=== PATIENT | female | born 1940 | race Caucasian/White ===

== ENCOUNTER → 2019-01-23 | Outpatient (CLI) | payer MEDICARE, BC ==
--- NOTE | 2019-01-23 16:40 | CONS ---
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 Patient has multiple medical comorbidities. She has been receiving bilateral knee steroid injections for many years now and is happy with the relief. The relief lasts about 3 months. She would like to continue steroid injections. At this time she is not interested in pursuing surgical treatment and given her multiple medical comorbidities I agree with this assessment. Plan: Bilateral knee steroid injection Weight loss Ice Low impact activities Assessment/Plan (Daily) Right and left knee steroid injection procedure: Risks and benefits of steroid injection reviewed with patient. The risks include infection, failure, pain, swelling, nerve/tendon/ligament damage. The patient verbalized understanding and verbal consent was obtained prior to procedure. The right and left knee was prepped in a sterile fashion with alcohol and betadine the site of injection was confirmed. Anterior medial approach was used. The skin and capsule was anesthetized with 3mL 1% lidocaine. The right and left knee were each injected with 2mL 1% lidocaine, 2mL 0.25% bupivacaine, 40mg Depo-Medrol. Injection flowed freely. Good hemostasis was achieved and no complications noted. The patient tolerated the procedure well. Limit activity and ice for 24-48 hours Consultation Date/Type/Reason Admit Date/Time Date of Consultation: Jan 23, 2019 Reason for Consultation Bilateral knee pain Date/Time of Note DATE: 01/23/19 TIME: 16:29 Hx of Present Illness Is a 79-year-old female with a chief complaint of right and left knee pain. The pain is worse in the right knee. The pain began many years ago. She has had numerous corticosteroid injections in bilateral knees over the past years. This was done by Dr. Gabe Dowd at [facility]. The injections last for approximately 3 months. She has no interest in surgery. The patient's pain is in the lateral aspect of the right and left knee. Pain is not radiating to the lower leg. The pain is rated as a 78/10. Patient denies complaints of numbness or tingling. The pain is exacerbated by climbing stairs and ambulation. 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 ----- Duration: Years Injury: No Walking tolerance: 0.5 Block Limp: Yes Support: Cane Swelling: Yes Crepitation: Yes Instability: No Stairs: Uses banister. Places both feet on a step before proceeding to next. Physical Therapy: No Injections: Many bilateral knee steroid injections NSAID's: No, contraindicated secondary to cardiac arrhythmia Prior surgery: No Back pain: No Hip pain: No Risk of AVN : No Patient denies fever, chills, shortness of breath, chest pain, nausea/vomiting, constipation, diarrhea, numbness, and tingling. Past Medical History Cardiac arrhythmia Hypertension Bilateral lower extremity edema Thyroid abnormality DVTs Gout Osteoarthritis Asthma Eczema Osteoporosis Macular degeneration Past Surgical History Hysterectomy Tonsillectomy Family History Significant Family History: no pertinent family hx Social History Alcohol Use: none Smoking Status: Never smoker Drug Use: none Exam/Review of Systems Exam Vitals Weight: 200 pounds Height: 5 foot 1.5 inches BMI: 37.2 Temperature: 90.6 Heart Rate: 130 Blood Pressure: 132/64 Respiratory Rate: 16 Exam General: Awake, alert, in no acute distress, pleasant and cooperative Heart: regular rhythm Lungs: breathing comfortably, no tachypnea or dyspnea MUSCULOSKELETAL: Right and Left Knee This is a well developed obese female who is alert, oriented times three and in no apparent distress. Skin is intact over the right and left knee as well as the lower extremity with no abrasions, lacerations, or ulcerations. Observation of the patient's gait reveals an antalgic gait with valgus thrust. Frontal plane alignment is valgus on the right and left knees. There is pain on palpation of lateral greater than medial joint line. The patient demonstrates grinding anteriorly with ROM. Range of motion: 5 extension to approximately 110 degrees of flexion. Collateral ligament testing reveals no instability with varus or valgus stress at 0 and 30 degrees of flexion. Negative Jaja's and negative posterior drawer. Neurovascularly intact with 5/5 EHL/tibialis anterior/gastroc. Sensation intact to light touch in a sural, saphenous, deep peroneal, superficial peroneal, medial and lateral plantar nerve distribution. Palpable, symmetric dorsalis pedis and posterior tibial pulses in both lower extremities. Hip examination normal Imaging Imaging The patient received a standard set of films today that were personally reviewed. Imaging included a standing bilateral knee AP, PA flexion, merchant views and a dedicated lateral of the right and left knee: There is valgus alignment of the knee. There is complete loss of joint space lateral compartments and patellofemoral compartments. There is osteophyte formation. There is subchondral sclerosis. There are subchondral cysts. Degenerative changes are most severe in the lateral and patellofemoral compartme nt(s). Severe diffuse osteopenia. LUCILA DOWD MD Jan 23, 2019 16:39
--- NOTE | 2019-01-24 12:32 | RADRPT ---
PROCEDURE: XR Knees. CLINICAL INDICATION: Bilateral knee pain. TECHNIQUE: Total of eight views. Weightbearing frontal, oblique, and lateral views of the both kne es. Patellar views of both knees. COMPARISON: No prior study is available for comparison. FINDINGS: There is no fracture or dislocation. The soft tissues are normal. There are degenerative changes with osteophytes arising from all 3 joint compartment margins bilatera lly. There is bilateral lateral joint compartment narrowing, subarticular sclerosis, and deformity. T here is associated valgus deformity bilaterally. There is no lytic or blastic lesion. There is no radiopaque foreign body. IMPRESSION: 1. Severe degenerative changes of both knees with lateral joint compartment narrowing, deformity, an d valgus deformity. 2. Otherwise unremarkable images of both knees. RPTAT: QQ .Ryan Luis MD, MD Date Time Electronically viewed and signed by .Ryan Luis MD, MD on 01/24/2019 12:32 .R/
== END | disposition home or self-care (01) ==
LOC: HKI 16:12
PROVIDERS: ATTEND Orthopaedic Surgery Adult Reconstructive Orthopaedic Surgery
DX: M17.0 Bilateral primary osteoarthritis of knee (principal); I10 Essential (primary) hypertension
CPT/HCPCS: 20610; 73564; G0463

== ENCOUNTER → 2019-04-21 | Outpatient (CLI) | payer MEDICARE, BC ==
--- NOTE | 2019-04-21 17:39 | CONS ---
Consult Date/Type/Reason Admit Date/Time Initial Consult Date Date/Time of Note DATE: 04/21/19 TIME: 17:36 Subjective 79-year-old female returns to clinic today for follow-up 3 months after bilateral knee steroid injections. She states the injections did help for most of 3 months. However the pain has returned. She is in significant pain. She continues to wish to repeat these injections as she is not a good surgical candidate secondary to medical comorbidities. Denies any changes in her knee symptoms. Objective Vitals Weight: 200 pounds Height: 5 foot 1 inch Temperature: 90.6 Heart Rate: 71 Blood Pressure: 122/78 Respiratory Rate: 16 Exam General: Awake, alert, in no acute distress, pleasant and cooperative Heart: regular rhythm Lungs: breathing comfortably, no tachypnea or dyspnea MUSCULOSKELETAL: Bilateral lower extremity: Skin is intact. There are multiple varicose veins. There is significant edema and swelling of bilateral lower extremities. Sensation intact to light touch in a sural, saphenous, deep peroneal, superficial peroneal, medial and lateral plantar nerve distribution. Motor is intact, patient able to dorsiflex and plantarflex ankle and extend and flex great toe. Dorsalis Pedis pulse +2, Brisk capillary refill. Compartments are soft. Calves non-tender to palpation bilaterally. Assessment/Plan Hospital Course (Demo Recall) 79-year-old female with end-stage osteoarthritis of bilateral knees. She has had relief in the past with steroid injections. She wishes to continue with this therapy. Secondary to multiple comorbidities the patient is not a good surgical candidate. Plan: Bilateral knee steroid injection Follow-up in 3 months Assessment/Plan (Daily) Left and right knee steroid injection procedure: Risks and benefits of steroid injection reviewed with patient. The risks include infection, failure, pain, swelling, nerve/tendon/ligament damage. The patient verbalized understanding and verbal consent was obtained prior to procedure. The left and right knee was prepped in a sterile fashion with alcohol and betadine the site of injection was confirmed. Anteromedial approach was used. The skin and capsule was anesthetized with 3mL 1% lidocaine. The left and right knee were each injected with 2mL 1% lidocaine, 2mL 0.25% bupivacaine, 40mg Depo- Medrol. Injection flowed freely. Good hemostasis was achieved and no complications noted. The patient tolerated the procedure well. Limit activity and ice for 24-48 hours STALIN,LUCILA MD Apr 21, 2019 17:39
== END | disposition home or self-care (01) ==
LOC: HKI 15:53
PROVIDERS: ATTEND Orthopaedic Surgery Adult Reconstructive Orthopaedic Surgery
DX: M17.0 Bilateral primary osteoarthritis of knee (principal)
CPT/HCPCS: 20610; G0463